=== PATIENT | male | born 1975 | race Caucasian/White ===

== ENCOUNTER 2018-10-09 04:58 | Emergency (ER) | payer BC, MEDICAID ==
[2018-10-09] MEDS ORDERED: Sodium Chloride 0.9% 1000 ML 1,000 ML IV STA (05:18)
[2018-10-09] MEDS ORDERED: BENADRYL 50 MG/ML IV ONE ×2 (05:18→06:10)
--- NOTE | 2018-10-09 05:22 | ERPHSYRPT ---
- History of Present Illness Time Seen by Provider: 10/09/18 05:12 Source: patient Exam Limitations: no limitations Patient Subjective Stated Complaint: pt states he was bit on the scrotum by a tick yesterday and now his scrotum is swollen, red, and hot. Triage Nursing Assessment: pt alert and oriented, answers questions approp. pt ambulatory withe steady gait noted. respirations nonlabored with lungs cta. redness and swelling noted to scrotum. Physician History: 43-year-old white male with history of bipolar disorder arrives with complaint of swelling and pain in his scrotum states his scrotum is erythematous states he was bitten by a tick at 420 yesterday afternoon. Past medical history includes bipolar disorder Timing/Duration: yesterday Severity: moderate Modifying Factors: Improves With: other (erythema and pain and swelling scrotum) Associated Symptoms: other (erythema swelling and pain of scrotum), No nausea, No vomiting, No abdominal pain, No shortness of breath, No heartburn, No diaphoresis, No cough, No chills, No chest pain, No fever, No headaches, No loss of appetite, No malaise, No rash, No syncope, No seizure, No weakness Allergies/Adverse Reactions: No Known Drug Allergies Allergy (Verified 10/09/18 05:13) Hx Tetanus, Diphtheria Vaccination/Date Given: No Hx Influenza Vaccination/Date Given: No Hx Pneumococcal Vaccination/Date Given: No Immunizations Up to Date: No - Review of Systems Constitutional: No Fever, No Chills Eyes: No Symptoms Ears, Nose, & Throat: No Symptoms Respiratory: No Cough, No Dyspnea Cardiac: No Chest Pain, No Edema, No Syncope Abdominal/Gastrointestinal: No Abdominal Pain, No Nausea, No Vomiting, No Diarrhea Genitourinary Symptoms: Other (erythema and swelling and pain of scrotum) Musculoskeletal: No Back Pain, No Neck Pain Skin: Other (erythema swelling and pain of scrotum) Neurological: No Dizziness, No Focal Weakness, No Sensory Changes Psychological: No Symptoms Endocrine: No Symptoms All Other Systems: Reviewed and Negative - Past Medical History Pertinent Past Medical History: Yes Psycho-Social History: Bipolar - Past Surgical History Past Surgical History: No - Social History Smoking Status: Former smoker Exposure to second hand smoke: No Drug Use: none Patient Lives Alone: Yes - Nursing Vital Signs Nursing Vital Signs: Initial Vital Signs Temperature 98.1 F 10/09/18 05:00 Pulse Rate 96 H 10/09/18 05:00 Respiratory Rate 20 10/09/18 05:00 Blood Pressure 140/89 10/09/18 05:00 O2 Sat by Pulse Oximetry 99 10/09/18 05:00 Pain Scale Pain Intensity 10 - Physical Exam General Appearance: moderate distress, alert, anxiety Eye Exam: PERRL/EOMI Ears, Nose, Throat Exam: normal ENT inspection, TMs normal, pharynx normal, moist mucous membranes Neck Exam: normal inspection, non-tender, supple, full range of motion Respiratory Exam: normal breath sounds, lungs clear, No respiratory distress Cardiovascular Exam: regular rate/rhythm, normal heart sounds, normal peripheral pulses, capillary refill <2 sec Gastrointestinal/Abdomen Exam: soft, normal bowel sounds, No tenderness, No mass Male Genitalia Exam: other (erythema and edema of scrotum) Back Exam: normal inspection, normal range of motion, No CVA tenderness, No vertebral tenderness Extremity Exam: normal inspection, normal range of motion, pelvis stable Neurologic Exam: alert, oriented x 3, cooperative, dispersion mixer II-XII nml as tested, normal mood/affect, nml cerebellar function, nml station & gait, sensation nml, No motor deficits Skin Exam: other (there is erythema and edema of scrotum.) SpO2 Interpretation: normal (99%) SpO2: 99 - Course Nursing assessment & vital signs reviewed: Yes - Radiology Ultrasound Exam Scrotal Ultrasound: Other (scrotal ultrasound discussed with certified performance technologist: Varicocele on the left, small amount of fluid no torsion) Ordered Tests: Active Orders 24 hr Category Date Time Status IV Insertion STAT Care 10/09/18 05:17 Active TESTICLE [US] Stat Exams 10/09/18 Ordered ACETAMINOPHEN Stat Lab 10/09/18 05:30 Completed BLOOD CULTURE Stat Lab 10/09/18 05:20 Received CBC W DIFF Stat Lab 10/09/18 05:30 Completed CMP Stat Lab 10/09/18 05:30 Completed ETHYL ALCOHOL Stat Lab 10/09/18 05:30 Completed Lactic Acid Stat Lab 10/09/18 05:30 Completed SALICYLATE Stat Lab 10/09/18 05:30 Completed UA W/RFX UR CULTURE Stat Lab 10/09/18 05:37 Completed Urine Triage Profile Stat Lab 10/09/18 05:37 Completed Medication Summary Generic Name Dose Route Start Last Admin Trade Name Pedro PRN Reason Stop Dose Admin Lorazepam 1 mg 10/09/18 06:50 Ativan 1 Mg PO 10/09/18 06:51 STAT ONE Discontinued Medications Generic Name Dose Route Start Last Admin Trade Name Pedro PRN Reason Stop Dose Admin Diphenhydramine HCl 25 mg 10/09/18 05:18 10/09/18 05:49 Benadryl 50 Mg/Ml IV 10/09/18 05:19 25 mg STAT ONE Administration Diphenhydramine HCl Confirm 10/09/18 05:38 Benadryl 50 Mg/Ml Administered 10/09/18 05:39 Dose 50 mg .ROUTE .STK-MED ONE Diphenhydramine HCl 25 mg 10/09/18 06:10 10/09/18 06:13 Benadryl 50 Mg/Ml IV 10/09/18 06:11 25 mg STAT ONE Administration Diphtheria/Tetanus/Acell Pertussis 0.5 ml 10/09/18 05:23 10/09/18 05:49 Adacel Vial IM 10/09/18 05:24 0.5 ml .ONCE ONE Administration Diphtheria/Tetanus/Acell Pertussis Confirm 10/09/18 05:38 Adacel Vial Administered 10/09/18 05:39 Dose 0.5 ml IM .STK-MED ONE Doxycycline Hyclate 100 mg 10/09/18 06:03 10/09/18 06:13 Vibramycin 100 Mg PO 10/09/18 06:04 100 mg STAT ONE Administration Doxycycline Hyclate Confirm 10/09/18 06:11 Vibramycin 100 Mg Administered 10/09/18 06:12 Dose 100 mg .ROUTE .STK-MED ONE Sodium Chloride 1,000 mls @ 999 mls/hr 10/09/18 05:18 10/09/18 05:49 Sodium Chloride 0.9% 1000 Ml IV 10/09/18 06:18 999 mls/hr .Q1H1M STA Administration Sodium Chloride Confirm 10/09/18 05:38 Sodium Chloride 0.9% 1000 Ml Administered 10/09/18 05:39 Dose 1,000 mls @ ud .ROUTE .STK-MED ONE Ceftriaxone Sodium/Dextrose 1 g in 50 mls @ 100 mls/hr 10/09/18 06:02 06:08 Rocephin 1 Gm-D5w 50 Ml Bag IV 10/09/18 06:31 100 mls/hr STAT STA 100 mls/hr Administration Ceftriaxone Sodium/Dextrose Confirm 10/09/18 06:07 Rocephin 1 Gm-D5w 50 Ml Bag Administered 10/09/18 06:08 Dose 1 g in 50 mls @ ud IV .STK-MED ONE Ketorolac Tromethamine 30 mg 10/09/18 06:47 Toradol 30 Mg Injection IV 10/09/18 06:48 STAT ONE Lab/Rad Data: Laboratory Result Diagrams 10/09/18 05:30 10/09/18 05:30 Laboratory Results 10/09/18 10/09/18 10/09/18 Range/Units 05:37 05:37 05:30 WBC (4.0-10.5) K/mm3 RBC (4.1-5.6) M/mm3 Hgb (12.5-18.0) gm/dl Hct (42-50) % MCV (78-100) fl MCH (26-32) pg MCHC (32-36) g/dl RDW (11.5-14.0) % Plt Count (150-450) K/mm3 MPV (6-9.5) fl Gran % (36.0-66.0) % Eos # (Auto) (0-0.5) Absolute Lymphs (auto) (1.0-4.6) Absolute Monos (auto) (0.0-1.3) Lymphocytes % (24.0-44.0) % Monocytes % (0.0-12.0) % Eosinophils % (0.00-5.0) % Basophils % (0.0-0.4) % Absolute Granulocytes (1.4-6.9) Basophils # (0-0.4) Sodium (137-145) mmol/L Potassium (3.5-5.1) mmol/L Chloride (98-107) mmol/L Carbon Dioxide (22-30) mmol/L Anion Gap (5-15) MEQ/L BUN (9-20) mg/dL Creatinine (0.66-1.25) mg/dL Estimated GFR ML/MIN Glucose (74-106) mg/dL Lactic Acid 1.2 (0.4-2.0) Calcium (8.4-10.2) mg/dL Total Bilirubin (0.2-1.3) mg/dL AST (17-59) U/L ALT (0-50) U/L Alkaline Phosphatase (38-126) U/L Serum Total Protein (6.3-8.2) g/dL Albumin (3.5-5.0) g/dL Urine Color COLORLESS (YELLOW) Urine Appearance CLEAR (CLEAR) Urine pH 6.0 (5-6) Ur Specific Ridott 1.003 (1.005-1.025) Urine Protein NEGATIVE (Negative) Urine Ketones NEGATIVE (NEGATIVE) Urine Blood NEGATIVE (0-5) Mohan/ul Urine Nitrite NEGATIVE (NEGATIVE) Urine Bilirubin NEGATIVE (NEGATIVE) Urine Urobilinogen NEGATIVE (0-1) mg/dL Ur Leukocyte Esterase NEGATIVE (NEGATIVE) Urine WBC (Auto) NONE (0-5) /HPF Urine RBC (Auto) NONE (0-2) /HPF U Epithel Cells (Auto) NONE (FEW) /HPF Urine Bacteria (Auto) NONE (NEGATIVE) /HPF Urine Culture Reflexed NO (NO) Urine Glucose NEGATIVE (NEGATIVE) mg/dL Salicylates (2-20) mg/dL Urine Opiates Level NEGATIVE (NEGATIVE) Ur Methadone NEGATIVE (NEGATIVE) Acetaminophen (10-30) ug/ml Urine Barbiturates NEGATIVE (NEGATIVE) Ur Phencyclidine (PCP) NEGATIVE (NEGATIVE) Urine Amphetamine NEGATIVE (NEGATIVE) U Benzodiazepine Level NEGATIVE (NEGATIVE) Urine Cocaine NEGATIVE (NEGATIVE) Urine Marijuana (THC) NEGATIVE (NEGATIVE) Ethyl Alcohol (0-10) mg/dL 10/09/18 10/09/18 10/09/18 Range/Units 05:30 05:30 05:30 WBC 7.7 (4.0-10.5) K/mm3 RBC 4.10 (4.1-5.6) M/mm3 Hgb 12.2 L (12.5-18.0) gm/dl Hct 36.1 L (42-50) % MCV 88.0 (78-100) fl MCH 29.7 (26-32) pg MCHC 33.8 (32-36) g/dl RDW 14.0 (11.5-14.0) % Plt Count 194 (150-450) K/mm3 MPV 9.6 H (6-9.5) fl Gran % 63.3 (36.0-66.0) % Eos # (Auto) 0.29 (0-0.5) Absolute Lymphs (auto) 1.71 (1.0-4.6) Absolute Monos (auto) 0.82 (0.0-1.3) Lymphocytes % 22.1 L (24.0-44.0) % Monocytes % 10.6 (0.0-12.0) % Eosinophils % 3.7 (0.00-5.0) % Basophils % 0.3 (0.0-0.4) % Absolute Granulocytes 4.90 (1.4-6.9) Basophils # 0.02 (0-0.4) Sodium 139 (137-145) mmol/L Potassium 3.8 (3.5-5.1) mmol/L Chloride 102 (98-107) mmol/L Carbon Dioxide 28 (22-30) mmol/L Anion Gap 12.5 (5-15) MEQ/L BUN 12 (9-20) mg/dL Creatinine 0.60 L (0.66-1.25) mg/dL Estimated GFR > 60.0 ML/MIN Glucose 92 (74-106) mg/dL Lactic Acid (0.4-2.0) Calcium 9.6 (8.4-10.2) mg/dL Total Bilirubin 0.60 (0.2-1.3) mg/dL AST 217 H (17-59) U/L ALT 138 H (0-50) U/L Alkaline Phosphatase 52 (38-126) U/L Serum Total Protein 7.8 (6.3-8.2) g/dL Albumin 4.1 (3.5-5.0) g/dL Urine Color (YELLOW) Urine Appearance (CLEAR) Urine pH (5-6) Ur Specific Ridott (1.005-1.025) Urine Protein (Negative) Urine Ketones (NEGATIVE) Urine Blood (0-5) Mohan/ul Urine Nitrite (NEGATIVE) Urine Bilirubin (NEGATIVE) Urine Urobilinogen (0-1) mg/dL Ur Leukocyte Esterase (NEGATIVE) Urine WBC (Auto) (0-5) /HPF Urine RBC (Auto) (0-2) /HPF U Epithel Cells (Auto) (FEW) /HPF Urine Bacteria (Auto) (NEGATIVE) /HPF Urine Culture Reflexed (NO) Urine Glucose (NEGATIVE) mg/dL Salicylates < 1.0 L (2-20) mg/dL Urine Opiates Level (NEGATIVE) Ur Methadone (NEGATIVE) Acetaminophen < 10 L (10-30) ug/ml Urine Barbiturates (NEGATIVE) Ur Phencyclidine (PCP) (NEGATIVE) Urine Amphetamine (NEGATIVE) U Benzodiazepine Level (NEGATIVE) Urine Cocaine (NEGATIVE) Urine Marijuana (THC) (NEGATIVE) Ethyl Alcohol < 10 (0-10) mg/dL - Progress Progress: improved Progress Note: 10/09/18 06:51 43-year-old white male with history of bipolar disorder arrives with complaints that he was bitten on the scrotum by a tick yesterday at 4:20 PM. Patient arrives with erythema to the scrotum edema to the scrotum. Patient with the normal CBC normal chemistry with the exception of the liver enzymes are mildly elevated. Patient with somewhat pressured speech on arrival. Patient is given Benadryl 50 mg IV normal saline 1 L IV Patient with normal urinalysis acetaminophen level less than 10 salicylate less than 1.0 alcohol level less than 10 Patient's urine drug screen normal lactate 1.2 CBC white blood cell 7.7 hemoglobin 12.2 hematocrit 36.1 platelets 194 Chemistry sodium 139 potassium 3.8 chloride 102 bicarbonate 28 BUN 12 creatinine 0.6 glucose 92 ER course patient is given Benadryl 50 mg IV ultrasound is obtained he is given 1 L of normal saline. Patient is asking for some type of narcotic for pain however patient with AST of 217 SGPT of 138. Will give patient Toradol 30 mg IV. Will give patient Ativan 1 mg by mouth. Plan home with Keflex 500 mg orally every 6 hours. For 7 days Doxycycline 100 mg orally twice a day for 10 days Patient to take Motrin every 6 hours as needed for pain. Benadryl 50 mg orally every 6 hours for 2-3 days, Cold packs to scrotum 24-48 hours 10/09/18 06:55 patient states that he had a tick on his scrotum yesterday when he removed it I see no ticks at this time. - Departure Departure Disposition: Home Clinical Impression: Cellulitis, scrotum Tick bite of scrotum Qualifiers: Encounter type: initial encounter Qualified Code(s): S30.863A - Insect bite ( nonvenomous) of scrotum and testes, initial encounter; W57.XXXA - Bitten or stung by nonvenomous insect and other nonvenomous arthropods, initial encounter Condition: Fair Critical Care Time: No Referrals: [place] LEZAMA MD [Primary Care Provider] - Additional Instructions: Return home. Cold packs to area 24-48 hours. Benadryl 50 mg orally every 6 hours for 2-3 days (hold for somnolence) Motrin every 6 hours as needed for pain, Keflex as prescribed, Doxycycline as prescribed, Follow-up with your family doctor call tomorrow and arrange an appointment. Return for acute distress or for severe symptoms. Prescriptions: Cephalexin Mh 500 mg [Keflex 500 mg] 500 mg PO Q6H #28 capsule Doxycycline Hyclate 100 mg [Vibramycin 100 MG] 100 mg PO BID #20 tab
[2018-10-09] MEDS ORDERED: Adacel Vial IM ONE ×2 (05:23→05:38)
[2018-10-09 05:36] LABS: BASOPHIL % 0.3 % (0.0-0.4); Basophil (Absolute #) 0.02 (0-0.4); Eosinophil % 3.7 % (0.00-5.0); Eosinophil (Absolute #) 0.29 (0-0.5); Granulocytes % 63.3 % (36.0-66.0); Hematocrit 36.1 % (42-50); Hemoglobin 12.2 gm/dl (12.5-18.0); Lymphocyte (Absolute #) 1.71 (1.0-4.6); Lymphocytes % 22.1 % (24.0-44.0); Mean Corpuscular Hgb Concent. 33.8 g/dl (32-36); Mean Platelet Volume 9.6 fl (6-9.5); Monocyte (Absolute #) 0.82 (0.0-1.3); Monocytes % 10.6 % (0.0-12.0); Platelet Count 194 K/mm3 (150-450); White Blood Count 7.7 K/mm3 (4.0-10.5)
[2018-10-09] MEDS ORDERED: Sodium Chloride 0.9% 1000 ML 1,000 ML ONE (05:38)
[2018-10-09] MEDS ORDERED: BENADRYL 50 MG/ML ONE (05:38)
[2018-10-09 05:41] LABS: Mean Corpuscular Hemoglobin 29.7 pg (26-32)
[2018-10-09 05:44] LABS: Appearance CLEAR (CLEAR); Bilirubin NEGATIVE (NEGATIVE); Blood NEGATIVE Ery/ul (0-5); Glucose NEGATIVE (NEGATIVE); Ketones NEGATIVE (NEGATIVE); Leukocyte Esterase NEGATIVE (NEGATIVE); Nitrite NEGATIVE (NEGATIVE); Protein,Urine Dip NEGATIVE (Negative); Specific Gravity 1.003 (1.005-1.025); Urobilinogen NEGATIVE mg/dL (0-1)
[2018-10-09 05:46] LABS: ALBUMIN 4.1 g/dL (3.5-5.0); ALKALINE PHOSPHATASE 52 U/L (38-126); ANION GAP 12.5 MEQ/L (5-15); BLOOD UREA NITROGEN 12 mg/dL (9-20); CHLORIDE 102 mmol/L (98-107); Calcium 9.6 mg/dL (8.4-10.2); Carbon Dioxide 28 mmol/L (22-30); Glucose 92 mg/dL (74-106); Potassium 3.8 mmol/L (3.5-5.1); SGOT/AST 217 U/L (17-59); SGPT/ALT 138 U/L (0-50); SODIUM 139 mmol/L (137-145); Total Protein 7.8 g/dL (6.3-8.2)
[2018-10-09 05:53] LABS: ACETAMINOPHEN < 10 ug/ml (10-30); SALICYLATE < 1.0 mg/dL (2-20)
[2018-10-09 05:54] LABS: ETHYL ALCOHOL < 10 mg/dL (0-10)
[2018-10-09 05:58] LABS: Amphetamine,Urine NEGATIVE (NEGATIVE); Barbiturate,Urine NEGATIVE (NEGATIVE); Benzodiazepine,Urine NEGATIVE (NEGATIVE); Cocaine,Urine NEGATIVE (NEGATIVE); Methadone,Urine NEGATIVE (NEGATIVE); Opiate,Urine NEGATIVE (NEGATIVE); PCP,Urine NEGATIVE (NEGATIVE); THC,Urine NEGATIVE (NEGATIVE)
[2018-10-09] MEDS ORDERED: ROCEPHIN 1 Gm-D5w 50 ml Bag** 1 G/50 ML IVPB IV STA (06:02)
[2018-10-09] MEDS ORDERED: Vibramycin 100 MG PO ONE (06:03)
[2018-10-09] MEDS ORDERED: ROCEPHIN 1 Gm-D5w 50 ml Bag** 1 G/50 ML IVPB IV ONE (06:07)
[2018-10-09] MEDS ORDERED: Vibramycin 100 MG ONE (06:11)
[2018-10-09] MEDS ORDERED: TORAdol 30 mg Injection IV ONE (06:47)
[2018-10-09] MEDS ORDERED: Ativan 1 MG PO ONE (06:50)
[2018-10-09] MEDS ORDERED: TORAdol 30 mg Injection ONE (06:50)
[2018-10-09 07:05] VITALS: BP 125/67; PULSE 76; O2SAT 98
--- NOTE | 2018-10-09 07:55 | XRAY ---
Indication: Pain and swelling. Two-dimensional testicle sonogram performed. Comparison: None Both testicles are homogeneous in echogenicity with normal color Doppler flow. Right testicle measures 4.7 x 3.0 x 2.3 cm and the left measures 4.3 x 2.1 x 3.5 cm. Left and right epididymis unremarkable. Small nonspecific hydrocele, left greater than right. Left-sided varicocele accentuated with Valsalva maneuvering. Impression: Left-sided varicocele. Small nonspecific bilateral hydroceles. Negative for testicular torsion or suspicious intra-/extratesticular mass. Comment: Preliminary report was given.
== END 2018-10-09 07:12 | disposition home or self-care (01) ==
LOC: ED 04:58
DX: N49.2 Inflammatory disorders of scrotum (principal); S30.863A Insect bite (nonvenomous) of scrotum and testes, initial encounter
CPT/HCPCS: 36000; 36415; 76870; 80053; 80307; 81001; 83605; 85025; 87040; 90471; 96360; 96365; 96374; 96375; 99284; G0481; 90715; J0696; J1200; J1885; A9270-GY; G0480